=== PATIENT | male | born 1985 | race Caucasian/White ===

== ENCOUNTER 2021-07-08 23:59 | Emergency (ER) | payer SELFPAY ==
[~2021-07-08] VITALS: Ht 180.3 cm; Wt 59.0 kg
[2021-07-09] MEDS ORDERED: MORPHINE SULFATE 4 MG/ML CPJ (NOT FOR IM USE) IV STA (00:11)
[2021-07-09] MEDS ORDERED: PANTOPRAZOLE SODIUM 40 MG/VIAL IV STA (00:11)
[2021-07-09] MEDS ORDERED: ONDANSETRON HCL 4MG/2ML INJ IV STA (00:11)
[2021-07-09] MEDS ORDERED: DIPHENHYDRAMINE 50MG/ML VIAL IV ONE (00:15)
[2021-07-09] MEDS ORDERED: METHYLPREDNISOLONE SOD SUCC 125 MG/2 ML VIAL IV ONE (00:15)
[2021-07-09 00:56] LABS: BASOPHILS % 0.6 % (0.0-2.0); EOSINOPHILS % 1.6 % (0.0-5.0); HEMATOCRIT. 40.4 % (42.0-52.0); HEMOGLOBIN. 14.5 g/dL (14.0-18.0); LYMPHOCYTES % 19.1 % (20.0-50.0); MEAN CORPUSCULAR HEMOGLOBIN 32.4 pg (28.0-32.0); MEAN CORPUSCULAR VOLUME 90.6 fL (80.0-94.0); MEAN PLATELET VOLUME 7.6 fl (7.4-10.4); MONOCYTES % 8.7 % (2.0-8.0); PLATELET 292 x1000/uL (130-400); RED BLOOD CELL COUNT 4.46 mill/uL (4.7-6.1); RED CELL DISTRIBUTION WIDTH 15.5 % (11.6-14.6)
[2021-07-09 01:01] LABS: CHLORIDE 103 mEq/L (98-107)
[2021-07-09 01:05] LABS: ETHANOL BLOOD < 10 mg/dL
[2021-07-09 01:19] LABS: D-DIMER 0.59 mg/L FEU (<0.50); INR 0.9; PROTHROMBIN TIME 9.8 sec (9.6-11.0)
[2021-07-09] MEDS ORDERED: METOCLOPRAMIDE HCL 10MG/2ML VIAL IV ONE (01:30)
[2021-07-09] MEDS ORDERED: MORPHINE SULFATE 4 MG/ML CPJ (NOT FOR IM USE) IV ONE (01:45)
[2021-07-09] MEDS ORDERED: MIDAZOLAM HCL 2 MG/2 ML VIAL IV ONE (01:45)
[2021-07-09 02:20] VITALS: BP 172/136
[2021-07-09] MEDS ORDERED: IOHEXOL-350 100 ML BOTTLE ONE (04:43)
== END 2021-07-09 02:30 | disposition left against medical advice (07) ==
LOC: ER 23:59
DX: R10.9 Unspecified abdominal pain (principal); Z98.890 Other specified postprocedural states
CPT/HCPCS: 36415; 71045; 71275; 74174; 80053; 80320; 83605; 83690; 84484; 85025; 85379; 85610; 86850; 86870; 86900; 86901; 93005; 96374; 96375; 96376; 99291; C9113; J1200; J2250; J2270; J2405; J2765; J2930; Q9967; G0480